=== PATIENT | male | born 1965 | race Caucasian/White ===

== ENCOUNTER 2016-08-29 17:28 | Emergency (ER) | payer MEDICAID ==
--- NOTE | 2016-09-02 08:27 | ER ---
ADMIT: 08/29/2016 RM/LOC: ER [facility] MR#: [id number] [place], [place] [id number] KIRSTY MEI [address] [address] Emergency Room Report SEX: M AGE: 50 : 1965 DATE: 08/29/2016 ADDENDUM: This patient comes from [facility] because they are concerned that he was so drowsy. He is there for alcohol detox. They did a Breathalyzer alcohol and it was 0.3. During the exam, he kept falling asleep. He drinks about 750 mL of vodka daily, and also took Ativan for the last 2 days and because of that they would like him medically cleared. When he comes to the ER, he walked in without any difficulty. He is intoxicated, but he is very animated, speaks and answers questions appropriately. 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 He last drank 3 hours ago. He had normal vital signs. I did reassure the patient. I then spoke with [facility] and let them know that I was not concerned about how sober he was. Since he got up, we did feed him and give him fluids. At [facility], they still have a bed for him and are willing to accept him there for detox. Please see my T-sheet. MONICA Wilkins / Hector Moses MD / modl JOB #: [id number] CC: Hector Moses MD, Attending Physician
== END 2016-08-29 18:10 | disposition home or self-care (01) ==
LOC: ER 17:28
DX: F10.129 Alcohol abuse with intoxication, unspecified (principal); J44.9 Chronic obstructive pulmonary disease, unspecified; I10 Essential (primary) hypertension; Z79.899 Other long term (current) drug therapy; Z88.6 Allergy status to analgesic agent; Z90.89 Acquired absence of other organs